=== PATIENT | female | born 1960 | race Caucasian/White ===

== ENCOUNTER 2019-01-01 15:11 | Outpatient (CLI) | payer BC ==
--- NOTE | 2019-01-01 15:43 | BD ---
DEXA BONE DENSITY STUDY: HISTORY: Asymptomatic menopausal state. FINDINGS: Lumbar Spine: BMD (g/cm2) L1 0.961 T-Score: -0.3 L2 0.993 T-Score: -0.3 L3 0.955 T-Score: -1.2 L4 0.913 T-Score: -1.3 L1-L4 0.956 T-Score: -0.8 Femoral Neck: 0.692 T-Score: -1.4 Total Femur: 0.817 T-Score: -1.0 Impression: 1. Osteopenia of the left femoral neck and normal bone mineral density of the spine. 2. Ten-year fracture risk of major osteoporotic fracture is 14% and of a hip fracture is 0.5%. Thes e fracture probabilities are calculated for an untreated patient. POS: [facility]
== END 2019-01-01 15:12 | disposition home or self-care (01) ==
LOC: BICMAMMO 15:11
PROVIDERS: ATTEND Family Medicine
DX: Z13.820 Encounter for screening for osteoporosis (principal); M85.852 Other specified disorders of bone density and structure, left thigh; Z78.0 Asymptomatic menopausal state
CPT/HCPCS: 77063; 77067; 77080

== ENCOUNTER 2021-01-12 13:30 | Outpatient (CLI) | payer BC | END 2021-01-12 13:31 | disposition home or self-care (01) | LOC: BICMAMMO 13:30 | PROVIDERS: ATTEND Student in an Organized Health Care Education/Training Program | DX: Z12.31 Encounter for screening mammogram for malignant neoplasm of breast (principal); Z80.3 Family history of malignant neoplasm of breast | CPT/HCPCS: 77063; 77067 ==

== ENCOUNTER 2022-01-24 14:12 | Outpatient (CLI) | payer BC | END 2022-01-24 14:13 | disposition home or self-care (01) | LOC: BICULT 14:12 | PROVIDERS: ATTEND Student in an Organized Health Care Education/Training Program | DX: N64.89 Other specified disorders of breast (principal); N60.02 Solitary cyst of left breast | CPT/HCPCS: G0279 ==

== ENCOUNTER 2023-02-21 14:30 | Outpatient (CLI) | payer BC | END 2023-02-21 14:31 | disposition home or self-care (01) | LOC: BICMAMMO 14:30 | PROVIDERS: ATTEND Family Medicine | DX: Z12.31 Encounter for screening mammogram for malignant neoplasm of breast (principal); Z80.3 Family history of malignant neoplasm of breast | CPT/HCPCS: 77063; 77067 ==

== ENCOUNTER 2024-02-23 15:01 | Outpatient (CLI) | payer BC | END 2024-02-23 15:02 | disposition home or self-care (01) | LOC: BICMAMMO 15:01 | PROVIDERS: ATTEND Family Medicine | DX: Z12.31 Encounter for screening mammogram for malignant neoplasm of breast (principal); Z80.3 Family history of malignant neoplasm of breast | CPT/HCPCS: 77063; 77067 ==

== ENCOUNTER 2025-02-25 14:07 | Outpatient (CLI) | payer BC | END 2025-02-25 14:08 | disposition home or self-care (01) | LOC: BICMAMMO 14:07 | PROVIDERS: ATTEND Family Medicine | DX: Z12.31 Encounter for screening mammogram for malignant neoplasm of breast (principal); Z80.3 Family history of malignant neoplasm of breast | CPT/HCPCS: 77063; 77067 ==